=== PATIENT | female | born 1950 | race Caucasian/White ===

== ENCOUNTER → 2019-09-30 | Outpatient (CLI) | payer MEDICARE, OTHER ==
[2006-10-01 09:35] VITALS: TEMP 97.8
== END ==
LOC: MC.RAD 09:25
DX: Z12.31 Encounter for screening mammogram for malignant neoplasm of breast (principal)

== ENCOUNTER → 2022-05-23 | Outpatient (CLI) | payer MEDICARE, OTHER ==
[2006-10-01 09:35] VITALS: TEMP 97.8
== END ==
LOC: MC.RAD 12:46
DX: Z12.31 Encounter for screening mammogram for malignant neoplasm of breast (principal)